=== PATIENT | male | born 1945 | race Caucasian/White ===

== ENCOUNTER 2021-06-10 09:59 | Outpatient (CLI) | payer OTHER, SELFPAY ==
--- NOTE | ~2021-06-10 | XR_ITS ---
XR knee RT 3V DATE: 06/10/2021 10:15 INDICATION: Right knee pain. No known injury. TECHNIQUE: 3 views COMPARISON: None FINDINGS: There is periarticular spurring at all 3 compartments and moderately prominent loss of medi al compartment joint space height. Osteopenia. No fracture or dislocation or joint effusion. No periosteal reaction or bone destruction. No radiopaq ue intra-articular loose body is evident. IMPRESSION: Tricompartment osteoarthritis Reviewed, dictated and finalized at location A.
== END 2021-06-10 10:00 | disposition home or self-care (01) ==
LOC: ANHIMG 10:03
PROVIDERS: PCP Family Medicine; Visit Provider Nurse Practitioner Family
DX: M25.561 Pain in right knee (principal); M17.11 Unilateral primary osteoarthritis, right knee
CPT/HCPCS: 73562

== ENCOUNTER 2022-06-20 01:00 | Outpatient (NON) | payer OTHER, SELFPAY | END 2022-06-20 01:01 | disposition home or self-care (01) | LOC: ANHLAB 06-21 13:38 | PROVIDERS: PCP Family Medicine; Visit Provider Nurse Practitioner | DX: D49.2 Neoplasm of unspecified behavior of bone, soft tissue, and skin (principal); L57.0 Actinic keratosis | CPT/HCPCS: 88305 ==

== ENCOUNTER 2023-03-12 06:30 | Day surgery (SDC) | payer OTHER, SELFPAY ==
[2023-02-20 09:57] VITALS: BMI 23.8
--- NOTE | 2023-02-20 10:18 | SUR.PREOP ---
PT STATES HE HAS HAD FAINTING SPELLS WITH STRESSFUL EVENTS . WAS TOLD BY HIS DOCTOR THAT IT WAS VASOVAGAL .
--- NOTE | 2023-03-09 14:54 | P.PNAN_ITS ---
Anes - Initial Pre Proc Eval Procedure: Operation Date: 03/12/23 08:30 Proposed Procedures p Screening Colonoscopy - Guru Sloan MD Date/Time: 03/09/23 14:54 Surgeon: Guru Sloan MD Pre Op Diagnosis: HISTORY OF COLON POLYPS Patient Data Age: 77 Gender: M Height: 1.65 m Weight: 65 kg Allergies Allergy/AdvReac Type Severity Reaction Status Date / Time ampicillin Allergy Mild Rash Verified 03/12/23 07:23 Home Medications Medication Instructions Recorded Confirmed Type simvastatin 40 mg tablet See Rx Instructions .Route 10/20/22 03/12/23 Rx .COMPLEX #90 tabs sodium,potassium,mag sulfates 17.5 See Rx Instructions PO .COMPLEX 12/29/22 03/12/23 Rx gram-3.13 gram-1.6 gram oral soln #354 mL (Suprep Bowel Prep Kit) Patient hx anesthesia problems: none Family hx anesthesia problems: none Results Review: All pre-operative results and documents have been reviewed as part of the pre- operative evaluation. [facility] Past Medical History Medical History (Updated 03/12/23 @ 07:28 by Guru Sloan MD) Arthritis High cholesterol History of stress test (~1990) HLD (hyperlipidemia) Intention tremor Surgical History Surgical History History of arthroscopy of left knee (~2007) History of tonsillectomy (~1952) Family History Family History Mother Hypertension Carcinoma of colon Family history of malignant neoplasm of uterus Family history of coronary artery disease Father Family history of malignant neoplasm Family history of coronary artery disease Sibling BCC (basal cell carcinoma of skin) Social History Social History Smoking status: Never smoker Second hand tobacco smoke exposure: No Alcohol intake: current Drinks per week: 1 Substance use: never Substance use type: does not use Lack of Transportation: No Lack of Food: Never True Current Housing: I Have Housing Concerned About Future Housing: No Difficulty Paying Gas/Electric Bills: No Difficulty Paying for Meds: No Currently Unemployed: No Education: Bachelor's Degree Difficulty w/ Childcare or Family Care: No Living arrangements: with family Occupation/Education: retired Gender identity (if verbalized by the patient): Male Sexual Orientation (if Verbalized by the Patient): Straight or Heterosexual Spiritual care concerns: No Anes - Eval Final PreProcedure Day of Procedure 03/09/23 14:54 Patient weight: normal Heart: regular rate and rhythm Lungs: clear to auscultation and normal air movement Airway: Mallampati scale class II Neurological: alert and oriented Last oral intake: >/= 8 hours ASA classification: II Emergent: no Anesthetic plan: proceed Anesthesia type and monitoring: general GIVS Results Review: All pre-operative results and documents have been reviewed as part of the pre- operative evaluation. Informed Consent: The patient's anesthetic plan and its attendant risks and benefits were discussed with the patient/family/POA. Questions were solicited and answers provided to the satisfaction of the patient/family/POA.
[2023-03-12 07:20] VITALS: BP 108/69; PULSE 66; RESP 16; TEMP 37.1; O2SAT 98
--- NOTE | 2023-03-12 07:26 | PM.HPGS ---
History of Present Illness History of Present Illness Consent: Risks, benefits, and alternatives have been discussed and questions answered. Patient agrees to proceed with procedure. Chief complaint: HISTORY OF COLON POLYPS Narrative: Valentin Pugh is a 77 year old male Presents for screening colonoscopy. Patient has a prior history of colon polyps. Most recent colonoscopy 2017 was unremarkable however. Family history is significant patient's mother has had colon cancer. Patient presents today for screening colonoscopy. Patient reports his current weight appetite and bowel movements are normal. Patient denies abdominal pain. He feels good presently. [facility] Past Medical History Medical History (Updated 03/12/23 @ 07:28 by Guru Sloan MD) Arthritis High cholesterol History of stress test (~1990) HLD (hyperlipidemia) Intention tremor Surgical History Surgical History History of arthroscopy of left knee (~2007) History of tonsillectomy (~1952) Family History Family History Mother Hypertension Carcinoma of colon Family history of malignant neoplasm of uterus Family history of coronary artery disease Father Family history of malignant neoplasm Family history of coronary artery disease Sibling BCC (basal cell carcinoma of skin) Social History Social History Smoking status: Never smoker Second hand tobacco smoke exposure: No Alcohol intake: current Drinks per week: 1 Substance use: never Substance use type: does not use Lack of Transportation: No Lack of Food: Never True Current Housing: I Have Housing Concerned About Future Housing: No Difficulty Paying Gas/Electric Bills: No Difficulty Paying for Meds: No Currently Unemployed: No Education: Bachelor's Degree Difficulty w/ Childcare or Family Care: No Living arrangements: with family Occupation/Education: retired Gender identity (if verbalized by the patient): Male Sexual Orientation (if Verbalized by the Patient): Straight or Heterosexual Spiritual care concerns: No Meds Home Medications and Allergies Home Medications Medication Instructions Recorded Confirmed Type simvastatin 40 mg tablet See Rx Instructions .Route 10/20/22 03/12/23 Rx .COMPLEX #90 tabs sodium,potassium,mag sulfates 17.5 See Rx Instructions PO .COMPLEX 12/29/22 03/12/23 Rx gram-3.13 gram-1.6 gram oral soln #354 mL (Suprep Bowel Prep Kit) Allergies Allergy/AdvReac Type Severity Reaction Status Date / Time ampicillin Allergy Mild Rash Verified 03/12/23 07:23 Vital Signs Vital Signs - 24 hr 03/12/23 07:20 Temperature 98.7 F Pulse Rate 66 Respiratory Rate 16 Blood Pressure 108/69 Pulse Oximetry 98 Oxygen Delivery Room Air Exam Narrative: Physical exam reveals patient to be alert. Vital signs stable. HEENT exam is unremarkable. Patient is anicteric. Lungs are clear to auscultation and percussion. Heart is without murmur or extra sounds. Abdomen bowel sounds present soft nontender with no organomegaly. Digital external rectal exam is normal. Assessment and Plan Assessment and plan (1) History of colon polyps: Code(s): Z86.010 - Personal history of colonic polyps Status: Acute Assessment and Plan: Patient has a personal distant history of colon polyps. No polyps identified time previous exam in 2018. Patient presents today for surveillance colonoscopy. Further recommendations may be given after endoscopy. (2) Family history of colon cancer in mother: Code(s): Z80.0 - Family history of malignant neoplasm of digestive organs Status: Acute Assessment and Plan: Patient's mother had colon cancer. Plan is continue surveillance colonoscopy at 5 year intervals.
[2023-03-12] MEDS: LACTATED RINGERS 1,000 ML 150 ML IV CONT (07:35)
[2023-03-12 08:59] VITALS: BP 88/55; PULSE 61; RESP 16; O2SAT 98
[2023-03-12 09:09] VITALS: BP 99/59; PULSE 52; RESP 18; O2SAT 100
[2023-03-12 09:19] VITALS: BP 113/65; PULSE 61; RESP 20
--- NOTE | 2023-03-12 14:20 | WPDANESPN ---
Anes - Prog Note Post-Op Date/Time: 03/12/23 14:20 Cardiovascular status: normal Respiratory status: normal Airway patency: baseline Mental status: baseline Post-Op hydration status: normal Vital Signs: Last Vital Signs Temp 37.1 C 03/12/23 07:20 Pulse 61 03/12/23 09:19 Resp 20 03/12/23 09:19 BP 113/65 03/12/23 09:19 Pulse Ox 100 03/12/23 09:09 O2 Del Method Room Air 03/12/23 09:09 Pain Score (VAS): 0 I/O: Intake & Output 03/11/23 03/12/23 03/12/23 23:59 07:59 15:59 Intake Total 500 Balance 500 Post-procedural complaints: none Patient Feedback: Patient satisfied with anesthetic care.
== END 2023-03-12 09:35 | disposition home or self-care (01) ==
PROVIDERS: PCP Family Medicine; Visit Provider Internal Medicine Gastroenterology
PROC: 0DJD8ZZ Inspection of Lower Intestinal Tract, Via Natural or Artificial Opening Endoscopic (ICD-10-PCS; CPT 45378; principal; 2023-03-12 08:30)
DX: Z86.010 Personal history of colon polyps (principal)
CPT/HCPCS: 45385

== ENCOUNTER 2023-03-12 08:00 | Outpatient (NON) | payer OTHER, SELFPAY | END 2023-03-12 08:01 | disposition home or self-care (01) | LOC: ANHLAB 03-13 07:24 | PROVIDERS: PCP Family Medicine; Visit Provider Internal Medicine Gastroenterology | DX: Z86.010 Personal history of colon polyps (principal) | CPT/HCPCS: 88305 ==

== ENCOUNTER 2023-06-21 09:56 | Outpatient (CLI) | payer OTHER, SELFPAY ==
--- NOTE | ~2023-06-21 | XR_ITS ---
EXAMINATION: XR hip LT min 2V DATE: 06/21/2023 10:13 INDICATION: Left hip pain. TECHNIQUE: 2 views of left hip were obtained. COMPARISON: None. 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 No fracture. There is mild left hip osteoarthritis. IMPRESSION: 1. Mild left hip osteoarthritis. Reviewed, dictated and finalized at location E.
== END 2023-06-21 09:57 | disposition home or self-care (01) ==
PROVIDERS: PCP Family Medicine; Visit Provider Family Medicine
DX: M16.12 Unilateral primary osteoarthritis, left hip (principal)
CPT/HCPCS: 73502